=== PATIENT | female | born 1990 | race Asian ===

== ENCOUNTER 2017-02-17 16:57 | Emergency (ER) | payer OTHER ==
[2017-02-17 17:04] VITALS: BP 142/84; PULSE 100; TEMP 98.4; BMI 28.1
[2017-02-17 17:41] LABS: BASOPHIL 0.3 % (0-2.0); EOSINOPHIL 1.3 % (0-4.5); MCHC 31.6 g/dl (32.0-36.0); MEAN CELL VOLUME 69.7 fl (80-96); MEAN PLT VOLUME 7.2 fl (7.5-11.1); NEUTROPHILS 61.6 % (42.8-82.8); PLATELET COUNT 305 K/MM3 (134-434); RDW 20.7 % (11.6-15.6); WHITE BLOOD COUNT 6.4 K/mm3 (4.0-10.0)
--- NOTE | 2017-02-17 18:10 | PDOC ---
History of Present Illness - General Chief Complaint: Vaginal Bleeding Stated Complaint: VAGINAL BLEEDING Time Seen by Provider: 02/17/17 17:44 History Source: Patient - History of Present Illness Initial Comments: 02/17/17 17:57 CC: Vaginal Bleed Patient is a 26 y.o. (3 elective abortions) female with a PMH of hypothyroidism and KANU who presents to our ED today following a pill on Monday (02/13) and a follow-up exam on Monday at which time her Hb 7.8, patient was told if she continued to bleed she should go to the ED for evaluation prompting her visit to us today. Patient notes that her B-HCG did drop between her appointment on Monday and her appointment on Monday Patient states immediately following the she was using 4-5 pads/hour, however today she only used 2 pads. Past History - Past Medical History Allergies/Adverse Reactions: Allergies Allergy/AdvReac Type Severity Reaction Status Date / Time cyclobenzaprine HCl AdvReac Intermediate Verified 02/17/17 16:59 [From Flexeril] Home Medications: Ambulatory Orders Ferrous Sulfate [Feosol] 325 mg PO TID 02/17/17 Levothyroxine Sodium [Unithroid] 100 mcg PO DAILY 02/17/17 Anemia: Yes Thyroid Disease: Yes (HYPO) - Suicide/Smoking/Psychosocial Hx Smoking History: Never smoked Have you smoked in the past 12 months: No Hx Alcohol Use: Yes (OCCASSIONAL.) Drug/Substance Use Hx: No Substance Use Type: Alcohol Hx Substance Use Treatment: No Review of Systems - Review of Systems Constitutional: No: Chills, Fever Cardiac (ROS): Yes: Lightheadedness, Palpitations. No: Chest Pain : No: Burning, Dysuria *Physical Exam - Vital Signs Last Vital Signs Temp Pulse Resp BP Pulse Ox 98.4 F 100 H 18 142/84 100 02/17/17 16:59 02/17/17 16:59 02/17/17 16:59 02/17/17 16:59 02/17/17 16:59 - Physical Exam General Appearance: Yes: Nourished, Appropriately Dressed Neck: positive: Trachea midline, Supple Female Pelvic Exam: positive: normal external exam, cervical os closed, vaginal bleeding (Dark red blood in vaginal vault; active vaginal bleed from closed cervical os) Extremity: positive: Normal Capillary Refill Integumentary: positive: Normal Color, Dry, Warm Neurologic: positive: Fully Oriented, Alert ED Treatment Course - LABORATORY CBC & Chemistry Diagram: 02/17/17 17:15 02/17/17 17:15 Medical Decision Making - Medical Decision Making 02/17/17 18:13 Patient is a 26 y.o. female who presents with continued vaginal bleed following a pill on Tuesday 02/13. PLAN: 1. CBC, CMP 2. Quantitative HCG 3. Transvaginal 02/17/17 20:41 Patient's Hb 8.6 and Rh (-). Patient denies any previous Rhogam administration. Patient given OTD of [place]. Wet read of TVUS shows no IUP. Patient discharged home with return precautions and instruction to follow-up with her PCP. *DC/Admit/Observation/Transfer Diagnosis at time of Disposition: Vagina bleeding - Discharge Dispostion Disposition: HOME Condition at time of disposition: Good Admit: No - Referrals Referrals: Waleska Goff MD [Primary Care Provider] - - Patient Instructions Printed Discharge Instructions: DI for Vaginal Bleeding Additional Instructions: Please return to the Emergency Department should you experience a worsening in your symptoms or any concerning symptoms. Please follow-up with your PCP in the next 1 week.
[2017-02-17 18:31] LABS: ALBUMIN 3.9 g/dl (3.4-5.0); ANION GAP 10 (8-16); BILIRUBIN,TOTAL 0.2 mg/dL (0.2-1.0); CALCIUM 8.5 mg/dL (8.5-10.1); CO2 25 mmol/L (21-32); CREATININE 0.8 mg/dL (0.55-1.02); GLUCOSE,RANDOM 86 mg/dL (74-106); SGOT/AST 15 U/L (15-37); SGPT/ALT 31 U/L (12-78); TOT PROT 7.6 g/dl (6.4-8.2)
[2017-02-17 18:32] LABS: ALK PHOS 70 U/L (45-117)
[2017-02-17] MEDS ORDERED: RHO(D) IMMUNE GLOBULIN 1,500 UNIT DISP.SYRIN IM ONE (20:59)
[2017-02-17 22:50] LABS: URINE APPEARANCE CLOUDY; URINE BLOOD 3+ (NEGATIVE); URINE COLOR AMBER; URINE GLUCOSE (UA) NEGATIVE (NEGATIVE); URINE KETONE 1+ (NEGATIVE); URINE NITRITE NEGATIVE (NEGATIVE); URINE UROBILINOGEN NEGATIVE mg/dL (0.2-1.0)
[2017-02-17 22:53] LABS: URINE PROTEIN 2+ (NEGATIVE)
[2017-02-17 22:55] LABS: URINE MUCUS MANY; URINE RBC 1858 /hpf (0-3); URINE WBC 18 /hpf (3-5)
[2017-02-18 09:53] LABS: URINE LEUK ESTERASE Negative (NEGATIVE)
== END 2017-02-18 00:10 | disposition home or self-care (01) ==
LOC: SUPCPDRO 16:57 → JER 16:57
PROC: 3E0234Z Introduction of Serum, Toxoid and Vaccine into Muscle, Percutaneous Approach (ICD-10-PCS; principal; 2017-02-17)
DX: O03.6 Delayed or excessive hemorrhage following complete or unspecified spontaneous abortion (principal)
CPT/HCPCS: 36415; 76817-TC; 80053; 81003; 81015; 84702; 84703; 85025; 86850; 86900; 86901; 86999; 99284-25

== ENCOUNTER 2020-11-03 12:57 | Inpatient (IN) | payer OTHER ==
[2020-11-03 14:04] VITALS: BMI 36.0
[2020-11-03] MEDS ORDERED: BUTORPHANOL TARTRATE 2 MG/ML VIAL IVPB PRN (14:17)
[2020-11-03] MEDS ORDERED: DINOPROSTONE 10 MG VAGINAL SUPPOSITORY VG ONE (14:18)
[2020-11-03] MEDS ORDERED: ELECTROLYTE-148 SOLN 1,000 ML IV SCH (14:30)
[2020-11-03 14:58] LABS: BASO % 0.2 % (0-2.0); EOS % 1.1 % (0-4.5); HEMATOCRIT 38.4 % (32.4-45.2); HEMOGLOBIN 12.8 GM/dL (10.7-15.3); MCH 27.6 pg (25.7-33.7); MCHC 33.2 g/dl (32.0-36.0); MEAN PLT VOLUME 8.3 fl (7.5-11.1); MONO % 8.3 % (3.8-10.2); NEUT % 74.4 % (42.8-82.8); PLATELET COUNT 202 10^3/uL (134-434); RBC 4.63 M/mm3 (3.60-5.2); RDW 13.8 % (11.6-15.6); WHITE BLOOD COUNT 9.6 K/mm3 (4.0-10.0)
[2020-11-03 15:06] LABS: INR 0.87 (0.83-1.09); PROTHROMBIN TIME (PATIENT) 10.6 SEC (9.7-13.0)
[2020-11-03 15:09] LABS: ACTIVATED PTT 25.6 SECONDS (25.2-36.5)
[2020-11-03 15:21] LABS: CALCIUM 8.7 mg/dL (8.5-10.1)
[2020-11-03 15:25] LABS: CREATININE 0.5 mg/dL (0.55-1.3)
[2020-11-03 16:15] LABS: HIV INTERPRETATION NEGATIVE (NEGATIVE)
[2020-11-03] MEDS ORDERED: AMPICILLIN - 2 GM in SODIUM CHLORIDE 100 ML IVPB ONE (16:58)
[2020-11-03] MEDS ORDERED: BUTORPHANOL TARTRATE 2 MG/ML VIAL ONE (17:16)
[2020-11-03] MEDS ORDERED: AMPICILLIN - 1 GM in SODIUM CHLORIDE 100 ML IVPB SCH (20:58)
[2020-11-03] MEDS ORDERED: NALOXONE HCL 0.4 MG/ML VIAL IVPUSH PRN (22:06)
[2020-11-03] MEDS ORDERED: PCA PUMP NR ONE (22:08)
[2020-11-03] MEDS ORDERED: FENTANYL/BUPIVACAINE/NS/PF - PCEA - 50 ML DISP.SYRIN EP ONE (22:08)
[2020-11-03] MEDS: FENTANYL/BUPIVACAINE/NS/PF - PCEA - 50 ML DISP.SYRIN EP SCH (22:40)
[2020-11-03] MEDS ORDERED: OXYTOCIN 30 UNITS in 0.9% NS 30 UNIT/500 ML INFUS.BAG IVPB SCH (23:15)
[2020-11-04] MEDS ORDERED: OXYTOCIN 30 UNITS in 0.9% NS 30 UNIT/500 ML INFUS.BAG IVPB ONE (00:12)
[2020-11-04] MEDS ORDERED: FENTANYL/BUPIVACAINE/NS/PF - PCEA - 50 ML DISP.SYRIN EP ONE (03:21)
[2020-11-04] MEDS ORDERED: OXYTOCIN 20 UNITS in 0.9% NS 20 UNIT/1,000 ML INFUS.BAG IV ONE ×3 (04:46→08:11)
[2020-11-04] MEDS ORDERED: morphine SULFATE/PF 0.5 MG/ML (2cc Syringe - QUVA) ONE ×3 (05:41→05:52)
[2020-11-04] MEDS ORDERED: PHENYLEPHRINE HCL 10 MG/1 ML SINGLE DOSE VIAL ONE (05:41)
[2020-11-04] MEDS ORDERED: ePHEDrine SULFATE 50 MG/1 ML AMPULE ONE (05:42)
[2020-11-04] MEDS ORDERED: LIDOCAINE HCL/EPINEPHRINE/PF 10 ML VIAL ONE (05:45)
[2020-11-04] MEDS ORDERED: KETOROLAC TROMETHAMINE 30 MG/1 ML VIAL ONE (06:07)
[2020-11-04] MEDS ORDERED: ONDANSETRON 4 MG/2 ML VIAL ONE (06:07)
[2020-11-04] MEDS ORDERED: ceFAZolin SODIUM 1 GM VIAL ONE (06:15)
[2020-11-04] MEDS ORDERED: OXYTOCIN 20 UNITS in 0.9% NS 20 UNIT/1,000 ML INFUS.BAG IV SCH (06:45)
[2020-11-04] MEDS ORDERED: ONDANSETRON 4 MG/2 ML VIAL IVPUSH PRN (06:51)
[2020-11-04] MEDS ORDERED: ACETAMINOPHEN 1000 MG/100 ML VIAL (NON FORMULARY) IVPB PRN (06:52)
[2020-11-04] MEDS ORDERED: WITCH HAZEL 50% (TUCKS) 40 PAD/JAR PAD TP PRN (06:59)
[2020-11-04] MEDS ORDERED: diphenhydrAMINE HCL 25 MG CAPSULE (FP) PO PRN (06:59)
[2020-11-04] MEDS ORDERED: BENZOCAINE 28 GM HEMORRHOIDAL OINTMENT PR PRN (06:59)
[2020-11-04] MEDS ORDERED: BENZOCAINE 20% 57 GM BOTTLE TP PRN (06:59)
[2020-11-04] MEDS ORDERED: METHYLERGONOVINE MALEATE 0.2 MG/1 ML AMP IM PRN (06:59)
[2020-11-04 08:40] LABS: CORD BASE EXCESS -6.4 mmol/L (0-2); CORD HCO3 17.6 mmHg (20-29); CORD PCO2 30.1 mmHg (30-78); CORD pH 7.386 (7.14-7.44)
[2020-11-04 08:43] LABS: CORD BASE EXCESS -6.2 mmol/L (0-2); CORD HCO3 19.7 mmHg (20-29); CORD PCO2 40.3 mmHg (30-78); CORD pH 7.306 (7.14-7.44)
[2020-11-04] MEDS: LEVOTHYROXINE NA 150 MCG TABLET PO SCH (09:40)
[2020-11-04] MEDS: PRENATAL VITAMINS W/ FOLIC ACID TABLET (FP) PO SCH (09:48)
[2020-11-04] MEDS: IBUPROFEN 800 MG/8 ML IJ IVPB PRN (21:55)
[2020-11-05] MEDS: IBUPROFEN 800 MG/8 ML IJ IVPB PRN (06:04)
[2020-11-05] MEDS: LEVOTHYROXINE NA 150 MCG TABLET PO SCH (06:10)
[2020-11-05] MEDS ORDERED: BISACODYL 10 MG SUPP.RECT PR PRN (06:59)
[2020-11-05] MEDS: FENTANYL/BUPIVACAINE/NS/PF - PCEA - 50 ML DISP.SYRIN EP SCH (07:37)
[2020-11-05] MEDS: oxyCODONE HCL 5 MG TABLET PO PRN ×3 (08:22→18:21)
[2020-11-05] MEDS: ACETAMINOPHEN 325 MG TABLET (FP) PO PRN ×3 (08:26→18:21)
[2020-11-05] MEDS: SIMETHICONE 80 MG TAB.CHEW (FP) PO PRN ×3 (08:28→18:20)
[2020-11-05 09:57] LABS: HEMATOCRIT 33.6 % (32.4-45.2); HEMOGLOBIN 11.2 GM/dL (10.7-15.3); MCH 27.6 pg (25.7-33.7); MCHC 33.2 g/dl (32.0-36.0); MEAN CELL VOLUME 83.2 fl (80-96); MEAN PLT VOLUME 7.9 fl (7.5-11.1); PLATELET COUNT 179 10^3/uL (134-434); RBC 4.04 M/mm3 (3.60-5.2); RDW 13.8 % (11.6-15.6); WHITE BLOOD COUNT 14.9 K/mm3 (4.0-10.0)
[2020-11-05] MEDS: PRENATAL VITAMINS W/ FOLIC ACID TABLET (FP) PO SCH (10:06)
[2020-11-06] MEDS: SIMETHICONE 80 MG TAB.CHEW (FP) PO PRN ×3 (00:12→20:32)
[2020-11-06] MEDS: SENNOSIDES/DOCUSATE COMBO (SENNA PLUS) TABLET (UD) PO PRN ×2 (00:12→20:35)
[2020-11-06] MEDS: ACETAMINOPHEN 325 MG TABLET (FP) PO PRN ×3 (00:12→20:33)
[2020-11-06] MEDS: oxyCODONE HCL 5 MG TABLET PO PRN ×4 (00:13→20:33)
[2020-11-06] MEDS: LEVOTHYROXINE NA 150 MCG TABLET PO SCH (06:22)
[2020-11-06] MEDS: IBUPROFEN 600 MG TABLET (FP) PO PRN ×3 (08:37→20:32)
[2020-11-06] MEDS: PRENATAL VITAMINS W/ FOLIC ACID TABLET (FP) PO SCH (10:00)
[2020-11-07] MEDS: IBUPROFEN 600 MG TABLET (FP) PO PRN (05:25)
[2020-11-07] MEDS: SIMETHICONE 80 MG TAB.CHEW (FP) PO PRN (05:25)
[2020-11-07] MEDS: ACETAMINOPHEN 325 MG TABLET (FP) PO PRN (05:26)
[2020-11-07] MEDS: oxyCODONE HCL 5 MG TABLET PO PRN (06:11)
[2020-11-07] MEDS: LEVOTHYROXINE NA 150 MCG TABLET PO SCH (06:12)
[2020-11-07 07:27] LABS: HEMATOCRIT 30.2 % (32.4-45.2); HEMOGLOBIN 10.1 GM/dL (10.7-15.3); MCH 27.9 pg (25.7-33.7); MCHC 33.5 g/dl (32.0-36.0); MEAN CELL VOLUME 83.3 fl (80-96); MEAN PLT VOLUME 7.8 fl (7.5-11.1); PLATELET COUNT 186 10^3/uL (134-434); RBC 3.63 M/mm3 (3.60-5.2)
[2020-11-07 09:29] VITALS: BP 125/79; PULSE 69; TEMP 97.9
[2020-11-07] MEDS: PRENATAL VITAMINS W/ FOLIC ACID TABLET (FP) PO SCH (10:26)
== END 2020-11-07 10:55 | disposition home or self-care (01) | DRG 788 ==
LOC: JLDR 12:57 → J3W 11-04 08:45
PROVIDERS: ADMIT Obstetrics & Gynecology; ATTEND Obstetrics & Gynecology
PROC: 3E0P7VZ Introduction of Hormone into Female Reproductive, Via Natural or Artificial Opening (ICD-10-PCS; 2020-11-03)
PROC: 10D00Z1 Extraction of Products of Conception, Low, Open Approach (ICD-10-PCS; principal; 2020-11-04)
DX: O76 Abnormality in fetal heart rate and rhythm complicating labor and delivery (principal); O99.284 Endocrine, nutritional and metabolic diseases complicating childbirth; E03.9 Hypothyroidism, unspecified; O99.214 Obesity complicating childbirth; E66.9 Obesity, unspecified; Z3A.39 39 weeks gestation of pregnancy; Z37.0 Single live birth
CPT/HCPCS: 36415; 36600; 80048; 82803; 84443; 85025; 85027; 85610; 85730; 86780; 86850; 86900; 86901; 87389; 88307-TC; C9803; J0131; U0003; U0005

== ENCOUNTER 2020-12-11 12:35 | Emergency (ER) | payer OTHER ==
[2020-12-11 12:53] VITALS: BMI 29.0
[2020-12-11] MEDS ORDERED: SODIUM CHLORIDE 0.9% 500 ML INFUS.BAG IV ONE (13:57)
[2020-12-11] MEDS ORDERED: ACETAMINOPHEN 1000 MG/100 ML VIAL (NON FORMULARY) IVPB ONE (13:57)
[2020-12-11] MEDS ORDERED: KETOROLAC TROMETHAMINE 15 MG/ML VIAL IVPUSH ONE (13:57)
[2020-12-11] MEDS ORDERED: ACETAMINOPHEN INJECTION 100 ML IVPB ONE (14:09)
[2020-12-11] MEDS ORDERED: KETOROLAC TROMETHAMINE 15 MG/ML VIAL ONE (14:09)
[2020-12-11 14:25] LABS: BASO % 0.5 % (0-2.0); EOS % 2.2 % (0-4.5); HEMATOCRIT 38.2 % (32.4-45.2); HEMOGLOBIN 12.9 GM/dL (10.7-15.3); MCH 27.5 pg (25.7-33.7); MCHC 33.7 g/dl (32.0-36.0); MEAN CELL VOLUME 81.7 fl (80-96); MONO % 9.7 % (3.8-10.2); NEUT % 54.6 % (42.8-82.8); PLATELET COUNT 256 10^3/uL (134-434); RBC 4.68 M/mm3 (3.60-5.2); RDW 12.7 % (11.6-15.6); WHITE BLOOD COUNT 5.9 K/mm3 (4.0-10.0)
[2020-12-11 14:31] LABS: ALBUMIN 3.6 g/dl (3.4-5.0)
[2020-12-11 14:34] LABS: CREATININE 0.8 mg/dL (0.55-1.3)
[2020-12-11 14:35] LABS: BILIRUBIN,TOTAL 0.5 mg/dL (0.2-1); TOT PROT 7.9 g/dl (6.4-8.2)
[2020-12-11 15:54] LABS: PH,URINE 7.5 (5.0-8.0); URINE APPEARANCE CLEAR; URINE BILIRUBIN NEGATIVE (NEGATIVE); URINE COLOR YELLOW; URINE GLUCOSE (UA) NEGATIVE (NEGATIVE); URINE KETONE NEGATIVE (NEGATIVE); URINE LEUK ESTERASE NEGATIVE (NEGATIVE); URINE NITRITE NEGATIVE (NEGATIVE); URINE PROTEIN NEGATIVE (NEGATIVE); URINE UROBILINOGEN 0.2 mg/dL (0.2-1.0)
[2020-12-11] MEDS ORDERED: morphine CARPU-JECT 2 MG/1 ML DISP.SYRIN IVPUSH ONE (16:40)
[2020-12-11] MEDS ORDERED: MORPHINE SULFATE 2 MG/ML VIAL ONE (16:45)
[2020-12-11 19:40] VITALS: BP 126/84; PULSE 66
== END 2020-12-11 19:49 | disposition home or self-care (01) ==
LOC: JER 12:35
PROC: 3E0333Z Introduction of Anti-inflammatory into Peripheral Vein, Percutaneous Approach (ICD-10-PCS; principal; 2020-12-11)
PROC: 3E0333Z Introduction of Anti-inflammatory into Peripheral Vein, Percutaneous Approach (ICD-10-PCS; 2020-12-11)
PROC: 3E033NZ Introduction of Analgesics, Hypnotics, Sedatives into Peripheral Vein, Percutaneous Approach (ICD-10-PCS; 2020-12-11)
DX: R10.30 Lower abdominal pain, unspecified (principal); M54.6 Pain in thoracic spine
CPT/HCPCS: 36415; 74177-TC; 76830-TC; 80053; 81003; 84439; 84443; 84703; 85025; 99285-25; J0131

== ENCOUNTER 2021-05-14 09:51 | Emergency (ER) | payer OTHER ==
[2021-05-14 10:23] VITALS: BP 103/67; PULSE 76; TEMP 97.8; BMI 30.4
[2021-05-14] MEDS ORDERED: KETOROLAC TROMETHAMINE 30 MG/1 ML VIAL IM ONE (12:12)
[2021-05-14] MEDS ORDERED: KETOROLAC TROMETHAMINE 30 MG/1 ML VIAL ONE (12:12)
[2021-05-14 12:34] LABS: BASO % 0.5 % (0-2.0); EOS % 2.5 % (0-4.5); HEMATOCRIT 41.4 % (32.4-45.2); HEMOGLOBIN 13.3 GM/dL (10.7-15.3); LYMPH % 38.6 % (8-40); MCH 25.8 pg (25.7-33.7); MCHC 32.2 g/dl (32.0-36.0); MEAN CELL VOLUME 79.9 fl (80-96); MEAN PLT VOLUME 7.4 fl (7.5-11.1); MONO % 8.8 % (3.8-10.2); NEUT % 49.6 % (42.8-82.8); PLATELET COUNT 274 10^3/uL (134-434); RBC 5.18 M/mm3 (3.60-5.2); RDW 13.8 % (11.6-15.6); WHITE BLOOD COUNT 5.2 K/mm3 (4.0-10.0)
[2021-05-14 12:45] LABS: CALCIUM 9.1 mg/dL (8.5-10.1)
[2021-05-14 12:46] LABS: BLOOD UREA NITROGEN 10.4 mg/dL (7-18)
[2021-05-14 12:49] LABS: CREATININE 0.8 mg/dL (0.55-1.3)
[2021-05-14 12:50] LABS: BILIRUBIN,TOTAL 0.5 mg/dL (0.2-1); TOT PROT 8.3 g/dl (6.4-8.2)
== END 2021-05-14 14:45 | disposition home or self-care (01) ==
LOC: JER 09:51
PROC: 3E0233Z Introduction of Anti-inflammatory into Muscle, Percutaneous Approach (ICD-10-PCS; principal; 2021-05-14)
DX: M54.6 Pain in thoracic spine (principal); S46.811A Strain of other muscles, fascia and tendons at shoulder and upper arm level, right arm, initial encounter
CPT/HCPCS: 36415; 72070-TC-FY; 80053; 85025; 99284-25

== ENCOUNTER 2024-09-28 00:04 | Observation (INO) | payer BC, OTHER ==
[2024-09-28 01:06] LABS: ABSOLUTE IMMATURE GRANULOCYTES 0.01 x10^3/uL (0.0-0.031); BASOPHILS # 0.03 x10^3/uL (0.01-0.08); EOSINOPHIL % 4.7 % (0.7-5.8); EOSINOPHILS # 0.23 x10^3/uL (0.04-0.36); HEMATOCRIT 36.1 % (34.1-44.9); HEMOGLOBIN 12.2 g/dL (11.2-15.7); MCHC 33.8 g/dl (32.2-35.5); MEAN CELL VOLUME 82.8 fl (79.4-94.8); MEAN PLT VOLUME 9.8 fl (9.4-12.3); MONOCYTE # 0.36 x10^3/uL (0.24-0.86); MONOCYTE % 7.4 % (4.7-12.5); PLATELET COUNT 245 x10^3/uL (182-369); RDW 12.4 % (12.1-16.8)
[2024-09-28 01:15] LABS: INR 0.98 (0.83-1.09); PROTHROMBIN TIME (PATIENT) 10.8 SEC (9.7-13.0)
[2024-09-28 01:17] LABS: ACTIVATED PTT 30.6 SECONDS (25.2-36.5)
[2024-09-28 01:30] LABS: POTASSIUM 3.9 mmol/L (3.5-5.1)
[2024-09-28 01:32] LABS: CALCIUM 9.2 mg/dL (8.5-10.1)
[2024-09-28 01:33] LABS: ALBUMIN 3.9 g/dl (3.4-5.0); BLOOD UREA NITROGEN 8.2 mg/dL (7-18)
[2024-09-28 01:36] LABS: CREATININE 0.6 mg/dL (0.55-1.3)
[2024-09-28 01:37] LABS: BILIRUBIN,TOTAL 0.4 mg/dL (0.2-1)
[2024-09-28] MEDS ORDERED: ONDANSETRON *ODT* 4 MG TABLET ONE (01:52)
[2024-09-28] MEDS: ONDANSETRON *ODT* 4 MG TABLET SL ONE (01:53)
[2024-09-28] MEDS: SODIUM CHLORIDE 0.9% 500 ML INFUS.BAG IV ONE (02:34)
[2024-09-28] MEDS ORDERED: ACETAMINOPHEN INJECTION 100 ML ONE ×2 (02:36→02:43)
[2024-09-28] MEDS: ACETAMINOPHEN 1000 MG/100 ML BAG IVPB ONE (02:38)
[2024-09-28 03:21] LABS: PH,URINE 5.5 (5.0-8.0); URINE APPEARANCE TURBID; URINE BILIRUBIN NEGATIVE (NEGATIVE); URINE COLOR DK YELLOW; URINE GLUCOSE (UA) NEGATIVE (NEGATIVE); URINE KETONE TRACE (NEGATIVE)
[2024-09-28 03:22] LABS: URINE LEUK ESTERASE NEGATIVE (NEGATIVE); URINE NITRITE NEGATIVE (NEGATIVE); URINE PROTEIN 30 (NEGATIVE)
[2024-09-28 03:23] LABS: URINE RBC 70.7 /uL (0-23.9)
[2024-09-28 03:24] LABS: HYALINE CASTS 13.81 /uL (0-3.1); URINE BACTERIA 162.3 /uL (0-1359)
[2024-09-28] MEDS: KETOROLAC TROMETHAMINE 15 MG/ML VIAL IM ONE (05:47)
[2024-09-28] MEDS ORDERED: PIPERACILLIN/TAZOB 3.375 GM 3.375 GM/50 ML BAG IVPB ONE (08:58)
[2024-09-28] MEDS: PIPERACILLIN/TAZOB 3.375 GM 3.375 GM in DEXTROSE 5%-WATER - 50 ML IVPB ONE (09:00)
[2024-09-28] MEDS ORDERED: KETOROLAC TROMETHAMINE 15 MG/ML VIAL IVPUSH PRN ×2 (11:00→13:52)
[2024-09-28] MEDS ORDERED: ONDANSETRON 4 MG/2 ML VIAL IVPUSH PRN ×2 (12:47→13:52)
[2024-09-28] MEDS ORDERED: cefOXitin SODIUM 2 GM VIAL (RESTRICTED TO ID) IVPB ONE (12:51)
[2024-09-28] MEDS ORDERED: BUPIVACAINE HCL/PF 0.25% (2.5MG/ML) 10 ML VIAL ONE (12:51)
[2024-09-28] MEDS: ACETAMINOPHEN 1000 MG/100 ML BAG IVPB SCH ×2 (12:57→17:58)
[2024-09-28] MEDS ORDERED: MIDAZOLAM HCL 2 MG/2 ML SINGLE DOSE VIAL ONE (12:59)
[2024-09-28] MEDS ORDERED: ROCURONIUM BROMIDE 50 MG/5 ML SYRINGE ONE (13:00)
[2024-09-28] MEDS ORDERED: PROPOFOL 20 ML ONE (13:00)
[2024-09-28] MEDS ORDERED: SUCCINYLCHOLINE CHLORIDE 200 MG/10 ML SYRINGE ONE (13:10)
[2024-09-28] MEDS: BUPIVACAINE HCL/PF 0.25% (2.5MG/ML) 10 ML VIAL IJ ONE (13:30)
[2024-09-28] MEDS ORDERED: SUGAMMADEX SODIUM 200 MG/2 ML VIAL ONE (14:04)
[2024-09-28] MEDS ORDERED: ONDANSETRON 4 MG/2 ML VIAL ONE (14:05)
[2024-09-28] MEDS ORDERED: HYDROmorphone HCL 2 MG TABLET PO PRN (14:55)
[2024-09-28] MEDS ORDERED: oxyCODONE HCL 5 MG TABLET PO PRN (14:56)
[2024-09-28] MEDS ORDERED: HYDROmorphone HCL CARPU-JECT 2 MG/1 ML DISP.SYRIN ONE (15:19)
[2024-09-28] MEDS: HYDROmorphone HCL CARPU-JECT 2 MG/1 ML DISP.SYRIN IVPUSH PRN ×2 (15:20→15:35)
[2024-09-28] MEDS ORDERED: HYDROmorphone *PCA* 10MG/50ML DISP.SYRIN ONE (15:59)
[2024-09-28] MEDS: HYDROmorphone *PCA* 10MG/50ML DISP.SYRIN PCA SCH (16:10)
[2024-09-28] MEDS: D5-1/2NS+20 MEQ KCL - 20 MEQ/1,000 ML INFUS.BAG IV SCH (16:10)
[2024-09-28] MEDS ORDERED: HYDROmorphone HCl 2 MG/ML VIAL IVPUSH PRN (17:10)
[2024-09-28] MEDS: POLYETHYLENE GLYCOL (HEALTHYLAX) 3350 17 GM PACKET PO SCH (20:34)
[2024-09-28] MEDS: DOCUSATE SODIUM 100 MG CAPSULE (FP) PO SCH (22:05)
[2024-09-29] MEDS: SODIUM CHLORIDE 500 ML IV STA (06:04)
[2024-09-29] MEDS: LEVOTHYROXINE NA 75 MCG TABLET (FP) PO SCH (06:04)
[2024-09-29 09:11] LABS: ABSOLUTE IMMATURE GRANULOCYTES 0.01 x10^3/uL (0.0-0.031); BASOPHILS # 0.03 x10^3/uL (0.01-0.08); EOSINOPHIL % 3.3 % (0.7-5.8); EOSINOPHILS # 0.19 x10^3/uL (0.04-0.36); HEMATOCRIT 30.8 % (34.1-44.9); HEMOGLOBIN 10.3 g/dL (11.2-15.7); MCHC 33.4 g/dl (32.2-35.5); MEAN CELL VOLUME 83.7 fl (79.4-94.8); MEAN PLT VOLUME 9.7 fl (9.4-12.3); MONOCYTE % 8.7 % (4.7-12.5); PLATELET COUNT 194 x10^3/uL (182-369); RDW 12.4 % (12.1-16.8)
[2024-09-29 09:30] LABS: POTASSIUM 3.6 mmol/L (3.5-5.1)
[2024-09-29 09:35] LABS: CALCIUM 7.9 mg/dL (8.5-10.1)
[2024-09-29 09:36] LABS: BLOOD UREA NITROGEN 3.3 mg/dL (7-18)
[2024-09-29 09:37] LABS: CREATININE 0.6 mg/dL (0.55-1.3)
[2024-09-29 09:40] LABS: BILIRUBIN,TOTAL 0.6 mg/dL (0.2-1); TOT PROT 5.3 g/dl (6.4-8.2)
[2024-09-29] MEDS: ENOXAPARIN NA (PORCINE) 40 MG/0.4 ML DISP.SYRIN SQ SCH (09:43)
[2024-09-29] MEDS: ONDANSETRON 4 MG/2 ML VIAL IVPB PRN ×2 (09:53→17:16)
[2024-09-29] MEDS ORDERED: LEVOTHYROXINE NA 75 MCG TABLET (FP) PO SCH (10:00)
[2024-09-29] MEDS ORDERED: ENOXAPARIN NA (PORCINE) 40 MG/0.4 ML DISP.SYRIN SQ SCH (10:00)
[2024-09-29] MEDS: SCOPOLAMINE HYDROBROMIDE 1 PATCH PATCH.TD72 TD SCH (11:54)
[2024-09-29] MEDS: PANTOPRAZOLE 40 MG TABLET PO SCH (11:54)
[2024-09-29] MEDS: ACETAMINOPHEN 500 MG TABLET (FP) PO SCH (11:55)
[2024-09-29] MEDS: D5-1/2NS+20 MEQ KCL - 20 MEQ/1,000 ML INFUS.BAG IV SCH (12:36)
[2024-09-29] MEDS: HYDROmorphone *PCA* 10MG/50ML DISP.SYRIN PCA SCH ×2 (12:36)
[2024-09-29] MEDS: LACTATED RINGERS SOLUTION 1,000 ML IV SCH (12:36)
[2024-09-29] MEDS: IBUPROFEN 600 MG TABLET (FP) PO SCH (12:37)
[2024-09-29 13:36] VITALS: RESP 18
[2024-09-29] MEDS: KETOROLAC TROMETHAMINE 15 MG/ML VIAL IVPUSH PRN (13:36)
[2024-09-29] MEDS: LACTULOSE 20 GM/30 ML UDC (FOR ORAL USE ONLY) PO ONE (17:16)
[2024-09-29 21:40] VITALS: BMI 25.9
[2024-09-30 08:58] LABS: ABSOLUTE IMMATURE GRANULOCYTES 0.02 x10^3/uL (0.0-0.031); BASOPHILS # 0.04 x10^3/uL (0.01-0.08); EOSINOPHIL % 5.1 % (0.7-5.8); EOSINOPHILS # 0.25 x10^3/uL (0.04-0.36); HEMATOCRIT 32.4 % (34.1-44.9); HEMOGLOBIN 10.8 g/dL (11.2-15.7); MCHC 33.3 g/dl (32.2-35.5); MEAN CELL VOLUME 83.7 fl (79.4-94.8); MEAN PLT VOLUME 9.6 fl (9.4-12.3); MONOCYTE # 0.45 x10^3/uL (0.24-0.86); MONOCYTE % 9.1 % (4.7-12.5); PLATELET COUNT 198 x10^3/uL (182-369); RDW 12.6 % (12.1-16.8)
[2024-09-30 09:21] LABS: POTASSIUM 3.5 mmol/L (3.5-5.1)
[2024-09-30 09:25] LABS: CALCIUM 8.6 mg/dL (8.5-10.1)
[2024-09-30 09:26] LABS: BLOOD UREA NITROGEN 3.8 mg/dL (7-18)
[2024-09-30 09:29] LABS: CREATININE 0.6 mg/dL (0.55-1.3)
[2024-09-30 09:30] LABS: BILIRUBIN,TOTAL 0.6 mg/dL (0.2-1); TOT PROT 5.4 g/dl (6.4-8.2)
[2024-09-30] MEDS: DOCUSATE SODIUM 100 MG CAPSULE (FP) PO SCH (09:46)
[2024-09-30] MEDS: HYDROXYCHLOROQUINE SO4 200 MG TABLET (FP) PO SCH (09:46)
[2024-09-30 11:30] VITALS: BP 95/59; PULSE 60; TEMP 98.1
== END 2024-09-30 11:24 | disposition home or self-care (01) ==
LOC: JER 00:04 → INTOOBSV 07:53 → UNDOADMOB 07:53 → JERBED 07:53 → J7W 09:30 → JERBED 09:30 → J7W 15:08 → JERBED 15:08
PROVIDERS: ADMIT Internal Medicine; ATTEND Internal Medicine
PROC: 0FT44ZZ Resection of Gallbladder, Percutaneous Endoscopic Approach (ICD-10-PCS; 2024-09-28)
PROC: 3E0T3BZ Introduction of Anesthetic Agent into Peripheral Nerves and Plexi, Percutaneous Approach (ICD-10-PCS; 2024-09-28)
PROC: 3E033NZ Introduction of Analgesics, Hypnotics, Sedatives into Peripheral Vein, Percutaneous Approach (ICD-10-PCS; 2024-09-28)
PROC: 3E0333Z Introduction of Anti-inflammatory into Peripheral Vein, Percutaneous Approach (ICD-10-PCS; 2024-09-28)
PROC: 3E03329 Introduction of Other Anti-infective into Peripheral Vein, Percutaneous Approach (ICD-10-PCS; 2024-09-28)
PROC: 3E0337Z Introduction of Electrolytic and Water Balance Substance into Peripheral Vein, Percutaneous Approach (ICD-10-PCS; 2024-09-28)
PROC: 8E0W4CZ Robotic Assisted Procedure of Trunk Region, Percutaneous Endoscopic Approach (ICD-10-PCS; principal; 2024-09-28 12:30)
DX: K80.00 Calculus of gallbladder with acute cholecystitis without obstruction (principal); E03.9 Hypothyroidism, unspecified; D64.9 Anemia, unspecified
CPT/HCPCS: 36415; 71046-TC-FY; 74177-TC; 76705-TC; 80053; 81003; 83690; 84443; 84484; 84703; 85025; 85610; 85730; 86850; 86900; 86901; 87077; 87086; 88304-TC; 93005; 93010; 94760; 96361; 96365; 96375; 96376; 99285-25; G0378; Q0162; Q9967